=== PATIENT | female | born 1960 | race American Indian/Alaskan Native ===

== ENCOUNTER 2019-12-05 08:26 | Emergency (ER) | payer MEDICARE ==
[2019-12-05 08:36] VITALS: BP 130/79
--- NOTE | 2019-12-05 10:44 | Emergency Department Report ---
ED General Adult HPI - General Chief complaint: Medical Clearance Stated complaint: LOW POTASSIUM Time Seen by Provider: 12/05/19 10:35 Source: patient Mode of arrival: Ambulatory Limitations: No Limitations - History of Present Illness Initial comments: Mrs. Dickens is a 59-year-old female with history of diabetes mellitus, hypokalemia, breast cancer in remission, recurrent UTI, diabetic neuropathy who presents with fatigue palpitations generalized weakness. She also has dysuria with malodorous urine. She is concerned for low potassium. PCP Dr. Chaudhary -: Gradual, days(s) (Several days) Consistency: constant Improves with: none Worsens with: none Associated Symptoms: other (Generalized weakness, palpitations, dysuria) - Related Data Previous Rx's Medication Instructions Recorded Last Taken Type Potassium Chloride [K-Dur] 20 meq PO QDAY #30 tablet 12/05/19 Unknown Rx cephALEXin [Keflex] 500 mg PO Q6HR 5 Days #20 capsule 12/05/19 Unknown Rx Allergies Allergy/AdvReac Type Severity Reaction Status Date / Time No Known Allergies Allergy Unverified 12/05/19 08:32 ED Review of Systems ROS: Stated complaint: LOW POTASSIUM Other details as noted in HPI Comment: All other systems reviewed and negative Constitutional: malaise. denies: fever Respiratory: denies: shortness of breath Cardiovascular: palpitations. denies: chest pain Genitourinary: dysuria ED Past Medical Hx - Past Medical History Previous Medical History?: Yes Hx Diabetes: Yes Hx of Cancer: Yes (breast) Additional medical history: UTI - Surgical History Past Surgical History?: Yes Hx Breast Surgery: Yes (Right breast mastectomy) - Social History Smoking Status: Never Smoker Substance Use Type: None - Medications Home Medications: Home Medications Medication Instructions Recorded Confirmed Last Taken Type Potassium Chloride [K-Dur] 20 meq PO QDAY #30 tablet 12/05/19 Unknown Rx cephALEXin [Keflex] 500 mg PO Q6HR 5 Days #20 capsule 12/05/19 Unknown Rx ED Physical Exam - General Limitations: No Limitations General appearance: alert, in no apparent distress - Head Head exam: Present: atraumatic, normocephalic - Eye Eye exam: Present: normal appearance - ENT ENT exam: Present: mucous membranes moist - Neck Neck exam: Present: normal inspection, full ROM - Respiratory Respiratory exam: Present: normal lung sounds bilaterally. Absent: respiratory distress, wheezes, rales, rhonchi - Cardiovascular Cardiovascular Exam: Present: regular rate, normal rhythm, normal heart sounds. Absent: systolic murmur, diastolic murmur, rubs, gallop - GI/Abdominal GI/Abdominal exam: Present: soft, normal bowel sounds. Absent: distended, tenderness - Extremities Exam Extremities exam: Present: normal inspection - Neurological Exam Neurological exam: Present: alert, oriented X3 - Psychiatric Psychiatric exam: Present: normal affect, normal mood - Skin Skin exam: Present: warm, dry, intact, normal color. Absent: rash ED Course Vital Signs 12/05/19 08:33 Temperature 98.5 F Pulse Rate 127 H Respiratory 18 Rate Blood Pressure 130/79 O2 Sat by Pulse 95 Oximetry ED Medical Decision Making - Lab Data Result diagrams: 12/05/19 10:48 12/05/19 10:48 - EKG Data 12/05/19 10:49 EKG obtained 1044 Normal sinus rhythm rate 95 bpm normal axis prolonged QT interval prolonged [place] interval no ST elevation - Medical Decision Making Mrs. Dickens has 2.6 potassium, slightly increased QTC, Ms. Dickens given IV KCL prescribed keflex to UTI symptoms and KCL po supplementation Repeat heart rate 95 bpm Critical care attestation.: If time is entered above; I have spent that time in minutes in the direct care of this critically ill patient, excluding procedure time. ED Disposition Clinical Impression: Hypokalemia, UTI (urinary tract infection) Disposition: - TO HOME OR SELFCARE Is pt being admited?: No Does the pt Need Aspirin: No Condition: Stable Instructions: Hypokalemia (ED), Urinary Tract Infection in Women (ED) Prescriptions: Potassium Chloride [K-Dur] 20 meq PO QDAY #30 tablet cephALEXin [Keflex] 500 mg PO Q6HR 5 Days #20 capsule Referrals: LOKESH APODACA MD [Primary Care Provider] - 3-5 Days
[2019-12-05 11:00] LABS: Basophils % (Auto) 0.1 % (0.0-1.8); Hematocrit 37.9 % (30.3-42.9); Hemoglobin 12.3 gm/dl (10.1-14.3); Lymphocytes # (Auto) 0.9 K/mm3 (1.2-5.4); Lymphocytes % (Auto) 7.4 % (13.4-35.0); Mean Corpuscular HGB Conc 33 % (30-34); Mean Corpuscular Volume 77 fl (79-97); Monocytes # (Auto) 0.7 K/mm3 (0.0-0.8); Platelet Count 348 K/mm3 (140-440); Red Blood Count 4.93 M/mm3 (3.65-5.03); Red Cell Distribution Width 18.7 % (13.2-15.2)
[2019-12-05 11:19] LABS: BUN/Creatinine Ratio 13; Blood Urea Nitrogen 10 mg/dL (7-17); Calcium 8.8 mg/dL (8.4-10.2); Hemolysis Index 10
[2019-12-05] MEDS: POTASSIUM CHLORIDE 10 MEQ 10 MEQ/100 ML BAG IV SCH ×2 (11:57→13:34)
== END 2019-12-05 14:56 | disposition home or self-care (01) ==
LOC: ED 08:26
DX: E87.6 Hypokalemia (principal); N39.0 Urinary tract infection, site not specified; E11.40 Type 2 diabetes mellitus with diabetic neuropathy, unspecified; Z79.899 Other long term (current) drug therapy; Z85.3 Personal history of malignant neoplasm of breast; Z98.890 Other specified postprocedural states
CPT/HCPCS: 36415; 80048; 85025; 93005; 93010; 96374; 99283; J3480